=== PATIENT | female | born 1965 | race Caucasian/White ===

== ENCOUNTER 2019-07-11 05:26 | Inpatient (IN) ==
[2019-07-11] MEDS ORDERED: SODIUM CHLORIDE 0.9% 1,000 ML IV STA (05:44)
[2019-07-11] MEDS ORDERED: cefTRIAXone 1,000 MG in SODIUM CHLORIDE 0.9% 100 ML IV STA ×2 (05:44→06:53)
[2019-07-11] MEDS ORDERED: cefTRIAXone 1,000 MG VIAL ONE (05:55)
[2019-07-11 05:58] LABS: Basophils % 0.4 % (0.0-0.8); Eosinophils # 0.1 10*3/uL (0.0-0.87); Eosinophils % 0.8 % (0.00-10.9); Hematocrit 36.8 VOL% (35.7-47.0); Hemoglobin 12.3 GM/DL (12.0-16.0); Immature Granulocytes % 0.5 %; Immature Granulocytes Absolute 0.04 #; Lymphocytes # 1.2 10*3/uL (1.4-4.0); Lymphocytes % 14.6 % (21.3-54.2); Mean Corpuscular HGB Conc 33.4 GM/DL (32-36); Mean Corpuscular Volume 92.9 FL (87-102); Mean Platelet Volume 9.3 FL (9.6-12.0); Monocytes % 11.6 % (1.7-12.7); Neutrophils % 72.1 % (38.7-73.9); Platelet Count 264 T/CUMM (130-400); Red Blood Count 3.96 MC/CUMM (3.8-5.5); Red Cell Distribution Width 12.5 % (9.3-17.3); White Blood Count 7.9 T/CUMM (4-12)
[2019-07-11 06:10] LABS: PT Patient Result 10.7 SECS (9.6-12.2)
[2019-07-11 06:22] LABS: Alanine Aminotransferase 36 U/L (13-56); Albumin 3.6 G/DL (3.4-5.0); Alkaline Phosphatase 78 U/L (45-117); Aspartate Amino Transferase 25 U/L (0-37); Blood Urea Nitrogen 8 MG/DL (7-18); Calcium 8.5 MG/DL (8.5-10.1); Estimated Glom Filtration Rate 95 ML/MIN; Glucose 132 MG/DL (74-106); Osmolality,Calculated 282.1 MOS/KG (273-304); Total Protein 7.3 G/DL (6.4-8.3)
[2019-07-11 06:34] LABS: Apearance,Urine Slightly Hazy (Clear); Bacteria,Urine Occasional /HPF (Few); Bilirubin,Urine Negative (Negative); Blood, Urine Negative (Negative); Glucose,Urine (UA) Negative (Negative); Hyaline Casts,Urine 4 /LPF (0-3); Ketones,Urine 20 mg/dL (Negative); Mucus,Urine Occasional /LPF (Occasional); Nitrite,Urine Negative (Negative); Protein,Urine 30 MG/DL; RBC,Urine 5 /HPF (0-4); Squamous Epithelial Cell,Urine Occasional /HPF (0-10); Urine Color Yellow (Yellow); Urine Specific Gravity 1.013 (1.001-1.035); Urine Urobilinogen < 2.0 EU/DL (0.2-1.0); WBC,Urine 11 /HPF (0-6)
[2019-07-11] MEDS ORDERED: cefTRIAXone 1,000 MG in SYRINGE 1 EACH IV STA (06:56)
[2019-07-11 07:09] LABS: Barbiturates Screen,Urine Negative (Negative); Benzodiazepines Screen,Urine Negative (Negative); Cannabinoid Screen,Urine Negative (Negative); Opiate Screen,Urine Negative (Negative); Phencyclidine Screen,Urine Negative (Negative)
[2019-07-11] MEDS ORDERED: LACTULOSE 20 GM/30 ML UDCUP PO PRN (07:42)
[2019-07-11] MEDS ORDERED: BISACODYL 5 MG TABLET PO PRN (07:42)
[2019-07-11] MEDS ORDERED: DOCUSATE SODIUM 100 MG CAPSULE PO PRN (07:42)
[2019-07-11] MEDS ORDERED: NICOTINE 21 MG/24 HR PATCH TRANSDERM PRN (07:42)
[2019-07-11] MEDS ORDERED: ONDANSETRON 4 MG/2 ML VIAL IV PRN (07:42)
[2019-07-11 08:15] LABS: Thyroid Stimulating Hormone 1.56 uIU/ml (0.358-3.74)
[2019-07-11] MEDS: PANTOPRAZOLE 40 MG TABLET PO SCH (09:48)
[2019-07-11] MEDS: ACETAMINOPHEN 325 MG TABLET PO PRN ×2 (09:48→13:45)
[2019-07-11] MEDS: ENOXAPARIN 40 MG/0.4 ML SYRINGE SUBCUT SCH (09:49)
[2019-07-11] MEDS: SODIUM CHLORIDE 0.9% 1,000 ML IV SCH ×2 (09:50→16:08)
[2019-07-11 11:30] LABS: Risk Ratio 3.28; VLDL CHOLESTEROL 13.8 MG/DL
[2019-07-11] MEDS: ASPIRIN EC 81 MG TABLET PO SCH (13:45)
[2019-07-11] MEDS: CYANOCOBALAMIN 500 MCG TABLET PO SCH (13:47)
[2019-07-11] MEDS: cefTRIAXone 1,000 MG in SYRINGE 1 EACH IV SCH (13:47)
[2019-07-11] MEDS: CHOLECALCIFEROL 1,000 UNIT TABLET PO SCH (16:06)
[2019-07-11] MEDS: [UNRECOGNIZED DRUG - OTHER] PO SCH (16:08)
[2019-07-12 05:25] LABS: Basophils % 0.9 % (0.0-0.8); Eosinophils # 0.1 10*3/uL (0.0-0.87); Eosinophils % 3.1 % (0.00-10.9); Hematocrit 32.4 VOL% (35.7-47.0); Hemoglobin 10.7 GM/DL (12.0-16.0); Immature Granulocytes % 0.4 %; Immature Granulocytes Absolute 0.02 #; Lymphocytes # 1.6 10*3/uL (1.4-4.0); Lymphocytes % 35.6 % (21.3-54.2); Mean Corpuscular Volume 92.6 FL (87-102); Monocytes % 12.2 % (1.7-12.7); Neutrophils % 47.8 % (38.7-73.9); Platelet Count 204 T/CUMM (130-400); Red Cell Distribution Width 12.7 % (9.3-17.3); White Blood Count 4.5 T/CUMM (4-12)
[2019-07-12 05:54] LABS: Calcium 8.3 MG/DL (8.5-10.1); Osmolality,Calculated 287.6 MOS/KG (273-304)
[2019-07-12 07:55] VITALS: BP 126/84
[2019-07-12] MEDS: CHOLECALCIFEROL 1,000 UNIT TABLET PO SCH (08:51)
[2019-07-12] MEDS: ASPIRIN EC 81 MG TABLET PO SCH (08:51)
[2019-07-12] MEDS: CYANOCOBALAMIN 500 MCG TABLET PO SCH (08:51)
[2019-07-12] MEDS: PANTOPRAZOLE 40 MG TABLET PO SCH (08:52)
[2019-07-12] MEDS: ENOXAPARIN 40 MG/0.4 ML SYRINGE SUBCUT SCH (08:57)
[2019-07-12] MEDS ORDERED: MULTIVITAMIN (CENTRUM) TABLET PO SCH (09:00)
[2019-07-12] MEDS ORDERED: POTASSIUM CHLORIDE 20 MEQ TABLET PO PRN (09:35)
[2019-07-12] MEDS: [UNRECOGNIZED DRUG - OTHER] PO SCH (10:25)
[2019-07-12] MEDS: cefTRIAXone 1,000 MG in SYRINGE 1 EACH IV SCH (12:42)
[2019-07-12] MEDS: SODIUM CHLORIDE 0.9% 1,000 ML IV SCH (12:43)
== END 2019-07-12 12:00 | disposition home or self-care (01) | DRG 690 ==
LOC: N.ED 05:26 → N.EDINP 07:43 → N.4E 09:39
PROVIDERS: ADMIT Internal Medicine; ATTEND Internal Medicine